=== PATIENT | female | born 1985 | race Two or more races ===

== ENCOUNTER → 2024-07-20 | Outpatient (CLI) | payer OTHER, SELFPAY ==
--- NOTE | 2024-07-20 08:30 | XR_ITS ---
Examination: CT maxillofacial, without intravenous contrast. 2-D sagittal reconstructions. 3-D reconstructions. Date and time of exam:July 20, 2024 0908 hrs. Indications: Sinus pressure and pain nasal polyps years CTDI: vol (mGy):8.19 DLP: (mGycm):1008 Technique: Multiple axial images of maxillofacial region, 3.0 mm slice thickness. 2-D sagittal and coronal reconstructions. 3-D reconstructions. Low dose protocols were performed. One or more of the following dose reduction techniques were used; automated exposure control, adjustment of the mA and/or KV according to patient size, use of iterative reconstruction technique. Findings: Mucosal thickening up to 3 mm in the frontal air cells Total opacification ethmoid air cells and maxillary antra. Occlusion of the ostiomeatal complexes. Opacification of the nasal airways Mucosal disease up to 3 mm in the right sphenoid air cells Mild prominence nasopharyngeal soft tissues sagittal image 65 Negative for otitis media No visualized cerebral mass Impression: Chronic pansinusitis, severe ethmoid air cells maxillary antra .
== END | disposition home or self-care (01) ==
PROVIDERS: Referring Provider Otolaryngology; Visit Provider Otolaryngology
DX: J32.4 Chronic pansinusitis (principal)
CPT/HCPCS: 70486